=== PATIENT | male | born 1980 | race Two or more races ===

== ENCOUNTER 2022-06-14 04:13 | Emergency (ER) | payer OTHER ==
[~2022-06-14] VITALS: Ht 177.8 cm; Wt 90.7 kg
[2022-06-14] MEDS ORDERED: PEPCID AC20 MG PO (07:00)
== END 2022-06-14 07:42 | disposition home or self-care (01) ==
LOC: ER 04:13
DX: F12.929 Cannabis use, unspecified with intoxication, unspecified (principal); F10.929 Alcohol use, unspecified with intoxication, unspecified